=== PATIENT | female | born 1995 ===

== ENCOUNTER 2021-07-23 19:34 | Emergency (ER) | payer OTHER, SELFPAY ==
[2021-07-23 20:02] VITALS: BP 113/75; PULSE 79; RESP 17; TEMP 36.7; O2SAT 100; BMI 30.6
[2021-07-23] MEDS: Tetracaine HCl/PF 0.5% Oph Sol 4 ML DROPS 3 DROP EYE-BOTH (20:17)
[2021-07-23] MEDS: Fluorescein Sodium STRIP 1 STRIP EYE-RIGHT (20:18)
[2021-07-23] MEDS: Fluorescein Sodium STRIP 1 STRIP EYE-LEFT (20:18)
--- NOTE | 2021-07-23 21:15 | ED.EYEPROB ---
HPI - Eye Problem General Chief complaint: Eye Problems Stated complaint: work inj? Time Seen by Provider: 07/23/21 20:11 Source: patient Mode of arrival: ambulatory Limitations: no limitations History of Present Illness HPI Narrative: 25-year-old 16 weeks patient presents to ED for body fluid with chemicals going to her left eye. Patient states she works in the O[employer] and was cleaning equipment that was used for colopscopy while removing equipment from cleaning fluid, some fluid got into her eye. Patient states equipment was cleaned after being placed inside patient, and was placed in formula for further cleaning and sterilization ( there was still small amount of body fluid). Patient states fluid into the eye occurred at 3:30pm and she irrigated immeidately for 20 minutes with water.. Patient states no OBGYN complaint. Presently patient has no eye complaints. Patient states normal vision and negative for any pain or redness. Related Data Allergies Allergy/AdvReac Type Severity Reaction Status Date / Time No Known Allergies Allergy Verified 07/23/21 20:11 Review of Systems Review of Systems: Chemical fluid into the eye Yes all other systems are reviewed and are negative [facility] Past Medical History Medical History (Updated 07/23/21 @ 22:35 by LAST Arthur) No known health problems No known health problems Social History Social History Advance Directives: No Advance Directives Information Provided: No Patient : Yes Physical Exam Vital Signs: Vital Signs: Last Vital Signs Temp 98.1 F 07/23/21 20:02 Pulse 79 07/23/21 20:02 Resp 17 07/23/21 20:02 BP 113/75 07/23/21 20:02 Pulse Ox 100 07/23/21 20:02 BMI result Body Mass Index 30.6 Const: General: cooperative, healthy appearing, comfortable, no acute distress, well developed, alert, awake and Physically active Orientation/consciousness: patient oriented x3 HENMT: Head: Yes normal to inspection, Yes No palpable skull fracture present, Yes normocephalic, Yes atraumatic, Yes abrasion, No Acrocyanosis present, No Pak's sign, No contusion, No cranial bruits, No hematoma, No laceration, No occipital foramen tenderness, No palpable skull fracture, No raccoon eyes, No scalp lesion, No scalp tenderness, No Temporal artery tenderness present and No periorbital ecchymosis Eyes: Other: LEft eye; Visual acuity 20/20. PH testing 7. 2. Tetracaine placed in eye. Fluorescein dye placed in eye. Negative for corneal abrasion, corneal ulcer, or foreign body. negative for any conjunctival/scleral erythema or any discharge. Right eye: Visual acuity 20/25. PH testing 7.2. Tetracaine placed in eye. Fluorescein dye placed in eye. Negative for corneal abrasion, corneal ulcer, or foreign body. negative for any conjunctival/scleral erythema or any discharge. Neck: Neck: Yes normal visual inspection, Yes full ROM, Yes no lymphadenopathy, Yes no meningeal signs, Yes trachea midline, Yes supple, No anterior neck swelling and No tender Chest: Chest palpation & inspection: normal inspection of the chest and normal palpation of entire chest wall Resp: Effort & Inspection: normal respiratory effort and able to speak in complete sentences Auscultation: clear to auscultation bilaterally Cardio: Jugular venous distension: no JVD Heart sounds: S1 normal heart sound present and S2 normal heart sound present GI: Inspection: Yes normal to inspection and No abdominal wall ecchymosis Palpation (GI): Soft to palpation, not firm, nontender, no guarding and not rigid : General: No CVA tenderness and Yes no CVA tenderness Back/Spine/Pelvis: Back: no CVA tenderness, No CVA tenderness and No back tenderness Skin: General skin exam: no rashes or lesions noted and elasticity normal Neuro: General: patient oriented x3, gait normal, tone normal, no meningeal signs and CN's II-XI intact bilaterally Cranial nerves: Yes CN's II-XII intact bilaterally Extrem: General: Yes normal to inspection and Yes full ROM Psych: Appearance: grossly normal, well kempt and not disheveled Course Course Course Narrative: Eye exam done. Will discuss this portion fluid in the eye and risk Reevaluation(s) Reevaluation #1: Patient was educated on risk of communicable diseases from exposure from body fluids. Patient is agreeable to post exposure labs per presently would not like HIV prophylaxis kit. Patient will follow up with her work [employer] department tomorrow. Patient informed of 72 hour window for effectiveness of HIV prophylaxis if she chooses to take prophylaxis medication. Patient up-to-date with tetanus. Patient has no joint complaints Time: 21:34 Reevaluation #2: CBC and chemistry came back normal. Lab office was called and states HIV and hepatitis panel will come back in the morning. Patient will access to those results in her portal at around in the morning as per lab office. Patient will follow-up at work [employer] which is her worker's comp office and she will go with results and discuss re-evaluation of exposure the fluid, if prophylaxis HIV necessary, and getting HIV hepatitis status on patient which equipment was used on. Eye exam normal in the ED. FHR 139. Time: 22:33 MDM - Eye Problem MDM Narrative Medical decision making narrative: Body fluid exposure Lab Data Result diagrams: 07/23/21 21:37 07/23/21 21:37 Labs: Lab Results 07/23/21 07/23/21 07/23/21 Range/Units 21:36 21:37 21:37 WBC 10.7 (4.8-10.8) X10*3/uL RBC 4.16 L (4.20-5.50) X10*6/uL Hgb 12.6 (12.0-16.0) g/dl Hct 36.2 L (37.0-47.0) % MCV 87.0 (80.0-98.0) fL MCH 30.3 (27.0-33.0) pg MCHC 34.8 (31.0-35.0) g/dl RDW 13.3 (11.0-16.0) % Plt Count 267 (160-400) X10*3/uL MPV 10.5 (9.4-12.3) fL Immature Gran % (Auto) 0.6 H (0.0-0.4) % Neut % (Auto) 66.5 (45-73) % Lymph % (Auto) 25.8 (20-40) % Treasure % (Auto) 4.9 (2-11) % Eos % (Auto) 1.8 (0-4) % Baso % (Auto) 0.4 (0-2) % Lymph # (Auto) 2.8 (1.2-4.9) X10*3/uL Treasure # (Auto) 0.5 (0.1-1.2) X10*3/uL Eos # (Auto) 0.2 (0.0-0.4) X10*3/uL Baso # (Auto) 0.0 (0.0-0.2) X10*3/uL Abs Immat Gran (auto) 0.06 H (0.00-0.03) X10*3/uL Absolute Neuts (auto) 7.1 (2.0-8.3) x10*3/uL Absolute Nucleated RBC 0.000 (0.0-0.012) X10*3/uL Nucleated RBC % (auto) 0.0 (0.0-0.2) /100WBC Sodium 137 (135-145) mmol/L Potassium 3.8 (3.3-5.1) mmol/L Chloride 106 (96-108) mmol/L Carbon Dioxide 26 (22-29) mmol/L Anion Gap 9 L (12-20) BUN 7 L (9-16) mg/dL Creatinine 0.62 (0.5-1.4) mg/dL Estim Creat Clear Calc 127.2 Estimated GFR > 60 Random Glucose 85 (60-115) mg/dL Calcium 9.1 (8.4-10.2) mg/dL Total Bilirubin 0.3 (0.0-1.0) mg/dL Direct Bilirubin < 0.2 (0.0-0.5) mg/dL AST 20 (5-31) U/L ALT 18 (0-31) U/L Alkaline Phosphatase 66 (39-117) U/L Total Protein 7.1 (6.5-8.0) g/dL Albumin 3.7 (3.5-5.0) g/dL Amylase 75 (28-100) U/L Lipase 15 (8-78) U/L Urine Test POSITIVE H (NEGATIVE) Discharge Plan Discharge Clinical Impression: Employee exposure to body fluids Patient Disposition: Home, Self-Care Instructions: Body Substance Exposure (ED) Additional Instructions: Your eye exam came back normal. Please follow-up with [employer] tomorrow for re-evaluation of work-injury. Return to the ED for any loss of vision, blurry vision, eye pain, headache, dizziness, eye discharge, OBGYN complaints, or any other concerning symptoms. Rest of your labs will show up in patient portal Stand Alone Forms: Work/School Release Interventions: ED Discharge Assessment Last Done: 07/23/21 22:44 Discharge Date/Time: 07/23/21 22:45 Print Language: Turkmen
[2021-07-23 21:42] LABS: MANUAL DIFF FLAG NO
[2021-07-23 21:44] LABS: Basophils Percent Auto 0.4 % (0-2); Eosinophils Absolute Auto 0.2 X10*3/uL (0.0-0.4); Eosinophils Percent Auto 1.8 % (0-4); Hematocrit 36.2 % (37.0-47.0); Hemoglobin 12.6 g/dl (12.0-16.0); Imm Gran Abs Auto 0.06 X10*3/uL (0.00-0.03); Imm Gran Pct Auto 0.6 % (0.0-0.4); Lymphocytes Absolute Auto 2.8 X10*3/uL (1.2-4.9); Lymphocytes Percent Auto 25.8 % (20-40); Mean Corpuscular HGB Conc 34.8 g/dl (31.0-35.0); Mean Corpuscular Hemoglobin 30.3 pg (27.0-33.0); Mean Platelet Volume 10.5 fL (9.4-12.3); Monocytes Absolute Auto 0.5 X10*3/uL (0.1-1.2); Monocytes Percent Auto 4.9 % (2-11); Neutrophils Absolute Auto 7.1 x10*3/uL (2.0-8.3); Neutrophils Percent Auto 66.5 % (45-73); Platelet Count 267 X10*3/uL (160-400); Red Blood Count 4.16 X10*6/uL (4.20-5.50); Red Cell Distribution Width 13.3 % (11.0-16.0); White Blood Count 10.7 X10*3/uL (4.8-10.8)
[2021-07-23 21:58] LABS: UPreg QC Valid YES; Urine Pregnancy POSITIVE (NEGATIVE)
[2021-07-23 22:06] LABS: Alanine Aminotransferase 18 U/L (0-31); Albumin Level 3.7 g/dL (3.5-5.0); Alkaline Phosphatase 66 U/L (39-117); Amylase 75 U/L (28-100); Anion Gap 9 (12-20); Aspartate Amino Transferase 20 U/L (5-31); Bilirubin Direct < 0.2 mg/dL (0.0-0.5); Bilirubin Total 0.3 mg/dL (0.0-1.0); Blood Urea Nitrogen 7 mg/dL (9-16); Calcium 9.1 mg/dL (8.4-10.2); Carbon Dioxide 26 mmol/L (22-29); Chloride 106 mmol/L (96-108); Creatinine Clr Calc Pharmacy 127.2; Estimated Glomerular Filt Rate > 60; Glucose Random 85 mg/dL (60-115); Lipase 15 U/L (8-78); Potassium 3.8 mmol/L (3.3-5.1); Sodium 137 mmol/L (135-145); Total Protein 7.1 g/dL (6.5-8.0)
--- NOTE | 2021-07-23 22:42 | PC.NURSE ---
heart tones obtained at a rate of 139 . Provider notified
[2021-07-24 09:04] LABS: HBS Num1 1.64 mIU/mL (0-7.99); HBc Num1 0.32 S/CO (0.00-0.79); HBsAGNum1 0.16 S/CO (0.00-0.99); HIV AB/AG Nonreactive (Nonreactive); HIV Num 1 0.06 S/CO (0.00-0.99); Hepatitis B Core Antibody Nonreactive (Nonreactive); Hepatitis B Surface Antigen Negative (Negative); ~Hepatitis B Surface Antibody NONREACTIVE (Nonreactive); ~Hepatitis C Antibody Nonreactive (Nonreactive)
== END 2021-07-23 22:45 | disposition home or self-care (01) ==
PROVIDERS: Physician Assistant; Emergency Provider Internal Medicine; PCP Internal Medicine
DX: Z04.2 Encounter for examination and observation following work accident (principal); O26.892 Other specified pregnancy related conditions, second trimester; Z77.21 Contact with and (suspected) exposure to potentially hazardous body fluids; Z3A.16 16 weeks gestation of pregnancy
CPT/HCPCS: 36415; 80048; 80076; 81025; 82150; 83690; 85025; 86704; 86706; 86803; 87340; 87389; 99283; 99284

== ENCOUNTER 2024-07-12 17:06 | Emergency (ER) | payer OTHER, SELFPAY ==
--- OUTSIDE RECORDS SUMMARY | 2024-07-12 19:53 | XMS_ITS | Continuity of Care Document ---
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 Role Phone Not on Staff, PCP Primary Care Physician Unavail able Encounter [facility] [place] Date(s): 06/02/24 - 07/02/24 [facility] [address] [id number] Encounter Type: Triage Allergies, Adverse Reactions, Alerts No Known Medication Allergies Substance Criticality Severity Reaction Reaction Severity Status Bee Stings Active Immunizations Given and Recorded Vaccine Date Status Refusal Reason influenza virus vaccine, inactivated 04/28/19 Give n influenza virus vaccine, inactivated 04/15/18 Give n tetanus/diphtheria/pertussis, acel(Tdap) 02/03/18 Given Medications Colace sodium 100 mg oral capsule 100 mg, 1, capsule, By Mouth, 2 times a day, PRN, # 30 capsule, Refills 0, Tot. Refills 0, Maintenance, for constipation, 02/14/22 10:22:00 AM EDT, Route to Pharmacy Electronically, [facility]/pharmacy #[id number], Partial fill upon patient request if the prescription is for a schedule II opioid drug., 155, cm, 01/30/22 9:56:00 EDT, Height, 76.7, kg, 02/14/22 8:11:00 EDT, Dry Weight Start Date: 02/14/22 Status: Ordered Quantity: 30.0 Unit: capsule Repeat number: 1 EPINEPHrine 0.3 mg injectable solution = 0.3 mg, Intramuscular, Once, 0 Refills, Maintenance, 01/30/22 11:05:00 AM EDT, Partial fill upon patient request if the prescription is for a schedule II opioid drug. Start Date: 01/30/22 Status: Ordered Repeat number: 1 ibuprofen 800 mg oral tablet 800 mg, 1, tablet, By Mouth, Every 8 hours, # 30 tablet, Refills 0, Tot. Refills 0, Maintenance, 02/14/22 10:22:00 AM EDT, [id number] Partial fill upon patient request if the prescription is for a schedule II opioid drug., 155, cm, 01/30/22 9:56:00 EDT, Height, 76.7, kg, 02/14/22 8:11:00 EDT, Dry Weight Start Date: 02/14/22 Status: Ordered Quantity: 30.0 Unit: tablet Repeat number: 1 Multivitamins with Folic Acid 0.8 mg oral capsule 90 each, TAKE 1 CAPSULE BY MOUTH EVERY DAY, 0 Refills, 01/30/22 10:52:00 AM EDT, Partial fill upon patient request if the prescription is for a schedule II opioid drug. Start Date: 01/30/22 Status: Ordered Repeat number: 1 Multivitamins with Folic Acid 1 mg oral tablet 1 tablet, By Mouth, Daily, # 30 tablet, 11 Refills, Maintenance, 04/14/18 4:05:29 PM EDT, [place] [id number], 1 tablet By Mouth Daily,x30 days Start Date: 04/14/18 Stop Date: 04/09/19 Status: Ordered Quantity: 30.0 Unit: tablet Repeat number: 12 simethicone 80 mg oral tablet, chewable 80 mg, 1, tablet, Chew, 4 times a day, PRN, # 90 tablet, Refills 0, Tot. Refills 0, Maintenance, asneeded for gas, 02/14/22 10:44:00 AM EDT, Route to Pharmacy Electronically, [facility], Partial fill upon patient request if the prescription is for a schedule II opioid drug., 155, cm, 01/30/22 9:56:00 EDT, Height, 76.7, kg, 02/14/22 8:11:00 EDT, Dry Weight Start Date: 02/14/22 Status: Ordered Quantity: 90.0 Unit: tablet Repeat number: 1 Tylenol 325 mg oral tablet 975 mg, 3, tablet, By Mouth, Every 6 hours, PRN, # 50 tablet, Refills 0, Tot. Refills 0, Maintenance, for pain, 02/14/22 10:22:00 AM EDT, Route to Pharmacy Electronically, [facility]/pharmacy #[id number], Partial fill upon patient request if the prescription is for a schedule II opioid drug., 155, cm, 01/30/22 9:56:00 EDT, Height, 76.7, kg, 02/14/22 8:11:00 EDT, Dry Weight Start Date: 02/14/22 Status: Ordered Quantity: 50.0 Unit: tablet Repeat number: 1 Problem List Condition Confirmation Course Effective Dates Status Health St atus Informant Allergic rhinitis Confirmed Active BMI 28.0-28.9,adult Confirmed Active Migraine 1 Confirmed Active Obese class I Confirmed Active 1Stable, not as often anymore. Social History Social History Type Response Smoking Status Never (less than 100 in lifetime) entered on: 08/12/18 Sex Sex Representation Female (finding) Patient Care team information Care Team Personnel Name: Casimiro Ugalde RN Position: [facility] OB RN Member Role: Primary Care Nurse Name: Abby Lagunas RN Position: [facility] OB RN Member Role: Primary Care Nurse Name: Not on Staff, PCP Position: [facility] Physician (General Medicine) Member Role: PCP Care Team Related Persons Name: TERRENCE GARIBAY Name: WILMA BRIONES Name: SOLEDAD FAY Insurance Providers Guarantor name: CARA ANSELMO Health Plan Information #: 1 Payer: [employer] Member Number: NA Policy Number: NA Group Number: NA
== END 2024-07-12 23:30 | disposition left against medical advice (07) ==
PROVIDERS: Emergency Provider Emergency Medicine
DX: T78.40XA Allergy, unspecified, initial encounter (principal); X58.XXXA Exposure to other specified factors, initial encounter; Z53.21 Procedure and treatment not carried out due to patient leaving prior to being seen by health care provider